=== PATIENT | male | born 1955 | race Caucasian/White ===

== ENCOUNTER → 2021-10-26 | Outpatient (CLI) | payer OTHER ==
[~2021-10-26] MED LIST: NAPROSYN500 MG PO; PREDNISONE20 MG PO
[2021-10-26 10:46] LABS: HEMOGLOBIN 16.1 gm/dl (14.0-17.5); RED BLOOD COUNT 5.5 M/UL (4.20-5.50)
== END ==
LOC: LAB 09:58
PROVIDERS: Physician Assistant
DX: Z12.5 Encounter for screening for malignant neoplasm of prostate (principal); E78.5 Hyperlipidemia, unspecified; I10 Essential (primary) hypertension
CPT/HCPCS: 36415; 80053; 80061; 84153; 85025

== ENCOUNTER → 2021-11-02 | Outpatient (CLI) | payer OTHER | LOC: LAB 09:35 | PROVIDERS: Physician Assistant | DX: N28.9 Disorder of kidney and ureter, unspecified (principal) | CPT/HCPCS: 36415; 80048; 81001; 87086 ==

== ENCOUNTER 2021-11-11 10:01 | Emergency (ER) | payer OTHER ==
[2021-11-11 10:45] LABS: HEMOGLOBIN 14.6 gm/dl (14.0-17.5); RED BLOOD COUNT 5.06 M/UL (4.20-5.50); WHITE BLOOD COUNT 13.7 K/UL (4.5-11.0)
[2021-11-11] MEDS ORDERED: HYDROCODON-ACE1 EAC2 PO (12:47)
== END 2021-11-11 13:09 | disposition home or self-care (01) ==
LOC: ER1 10:01
PROVIDERS: Emergency Medicine
DX: N13.2 Hydronephrosis with renal and ureteral calculous obstruction (principal); I71.9 Aortic aneurysm of unspecified site, without rupture
CPT/HCPCS: 80053; 81001; 85025; 96374; 96375; 96376; 99284; J2270; J2405

== ENCOUNTER → 2021-11-22 | Outpatient (CLI) | payer OTHER ==
[~2021-11-22] MED LIST changes: +HYDROCODON-ACE1 EAC2 PO
== END ==
LOC: LAB 09:43
PROVIDERS: Physician Assistant
DX: N20.1 Calculus of ureter (principal)
CPT/HCPCS: 36415; 80048